=== PATIENT | male | born 1960 | race Caucasian/White ===

== ENCOUNTER 2018-09-03 11:46 | Observation (INO) ==
[2018-09-03 13:26] LABS: ALLEN TEST YES; BE 2.8 mmoll (-3.0-3.0); BLOOD TYPE ARTERIAL; HCO3-(ACT) 27.1 mmoll (20.0-26.0); METHB 1.1 % (0.0-1.5); O2(CT) 21.2 mL/dL (15.0-23.0); O2HB 96.6 % (95.0-99.0); PO2(98.6) 113 mmHg (60-100); SAMPLE BLOOD; SAO2 99.2 % (95.0-100.0); THB 15.5 g/dL (11.5-17.4)
[2018-09-03 13:27] LABS: pH(98.6) 7.65 (7.35-7.45)
[2018-09-03 13:28] LABS: MODALITY CANNULA; PCO2(98.6) 19 mmHg (35-45)
--- NOTE | 2018-09-03 13:30 | Diag Imaging Result Doc PS360 ---
EXAM: CT HEAD W/O CONTRAST INDICATION: syncope TECHNIQUE: This exam was performed using automated exposure control, adjustment of mA or kV according to patient size, and/or use of iterative reconstruction technique. COMPARISON: None. FINDINGS: There is no definite acute infarct given the limited sensitivity of CT versus MRI. There is no discrete intracranial mass, mass effect, or intracranial hemorrhage. The surrounding soft tissues and bony structures are essentially unremarkable. IMPRESSION: No evidence of acute intracranial pathology. Electronically signed by Vito Mac 09/03/2018 1:28 PM
--- NOTE | 2018-09-03 13:35 | Diag Imaging Result Doc PS360 ---
EXAM: FOOT COMPLETE LEFT INDICATION: injury TECHNIQUE: 3 views COMPARISON: None. FINDINGS: There are prominent calcaneal bone spurs. There is no discrete fracture, dislocation, or significant intrinsic osseous lesion, otherwise. There is soft tissue edema around the foot. IMPRESSION: Soft tissue edema but no evidence of acute osseous abnormality. Electronically signed by Vito Mac 09/03/2018 1:32 PM
[2018-09-03 13:37] LABS: BASO# 0.03 X1000 (0.0-0.2); BASO% 0.3 % (0.0-0.8); EOS# 0.05 X1000 (0.0-0.7); EOS% 0.4 % (0.0-10.0); HEMATOCRIT 43.6 % (42.0-52.0); HEMOGLOBIN 15.2 g/dL (14.0-18.0); IMM GRAN# 0.05 X1000 (0.0-0.04); IMM GRAN% 0.4 % (0.0-0.5); LYMPH# 1.46 X1000 (1.2-3.4); LYMPH% 12.6 % (20.5-51.1); MCH 30.6 PG (27-31); MCHC 34.9 g/dL (33-37); MCV 87.9 FL (81-99); MONO# 0.64 X1000 (0.11-0.59); MONO% 5.5 % (1.7-9.3); MPV 10.7 FL (7.4-10.4); NEUT# 9.37 X1000 (1.4-6.5); NEUT% 80.8 % (42.2-75.2); PLT 332 X1000 (130-400); RBC 4.96 XMIL (4.7-6.1); RDW 13.6 % (11.5-14.5)
--- NOTE | 2018-09-03 13:57 | Diag Imaging Result Doc PS360 ---
EXAM: ANKLE COMPLETE LEFT INDICATION: ankle injury TECHNIQUE: 3 views COMPARISON: None. FINDINGS: There are prominent calcaneal bone spurs and tiny bone spurs at the medial malleolus. There is no discrete fracture, dislocation, or significant intrinsic osseous lesion, otherwise. The ankle joint spaces appear to be preserved. There is soft tissue edema surrounding the foot and ankle. IMPRESSION: Soft tissue edema but no evidence of acute osseous abnormality. Electronically signed by Vito Mac 09/03/2018 1:55 PM
[2018-09-03 14:10] LABS: ALB/GLOB RATIO 1.1; ALBUMIN 3.9 g/dL (3.5-5.0); CALCIUM 9.5 mg/dL (8.8-10.2); CREATININE 1.3 mg/dL (0.7-1.2); POTASSIUM 4.1 mmol/L (3.5-5.1); TOTAL BILIRUBIN 0.8 mg/dL (0.20-1.00); TOTAL PROTEIN 7.4 g/dL (6.3-8.3)
--- NOTE | 2018-09-03 16:58 | PROVIDER DOCUMENTATION ---
This chart was entered by Kolton Koch Scribe, acting as scribe for Manav Sims MD. HPI-Neurological Disorder - General Chief Complaint: Syncope Stated Complaint: SYNCOPE Time Seen by Provider: 09/03/18 12:30 Source: patient Allergies/Adverse Reactions: Patient Allergies Allergy/AdvReac Type Severity Reaction Status Date / Time hydromorphone HCl * Allergy Severe ANAPHYLAXIS Verified 03/15/18 20:37 [From Dilaudid] iodine Allergy Severe ANAPHYLAXIS Verified 03/15/18 20:37 metronidazole [From Flagyl] Allergy Severe ANAPHYLAXIS Verified 03/15/18 20:37 Metronidazole HCl * Allergy Severe ANAPHYLAXIS Verified 03/15/18 20:37 [From Flagyl] Home Medications: Home Medication List Medication Instructions Recorded Confirmed Last Taken Type Furosemide [Lasix] 40 mg PO BID #0 tablet 10/03/14 03/15/18 10/14/14 Rx Glipizide 10 mg PO BID 03/15/18 03/16/18 Unknown History Apixaban [Eliquis] 5 mg PO BID #60 tab 03/20/18 Unknown Rx Digoxin [Lanoxin] 250 microgm PO DAILY #30 tab 03/20/18 Unknown Rx Diltiazem [Cardizem] 60 mg PO TID #90 tab 03/20/18 Unknown Rx Fluticasone 50 Mcg Nasal Basye 2 spray GENE DAILY #1 bottle 03/20/18 Unknown Rx [Flonase] Metoprolol Succinate E.r. [Toprol 50 mg PO BID #60 tab 03/20/18 Unknown Rx Xl] Spironolactone [Aldactone] 25 mg PO BID #60 tab 03/20/18 Unknown Rx - History of Present Illness-Neuro Nature of Presenting Problem: Pt is a 58 y/o M presents to the ED post syncope. He reports getting up from the bathroom, walking down the samano felt sweaty then passing out. He report his daughter was there and helped him to the floor. She reports he was out for about 15 seconds. He denies injury. He does complain of left foot/ankle pain for about 3 days after rolling his ankle in gravel. He says he has not been getting up out of the chair except to go the bathroom. He reports some SOB with exertion. Pt denies numbness and tingling in extremities. He reports a recent colonscopy where he has one large polyp that needs to removed surgically. Onset/Duration: reports: just prior to arrival Timing: reports: gone now Context: reports: other (syncope) Character of Altered Mental Status: reports: N/A Any recent trauma/injury?: reports: none New weakness or altered sensation location:: reports: none Associated Symptoms: reports: short of breath, trouble walking, other (syncope). denies: dizziness, confusion, fever/chills, numbness in legs/feet, tingling in legs/feet Similar Symptoms Previously?: No Recently seen or treated by another doctor?: No Review of Systems - Adult - REVIEW OF SYSTEMS - ADULT Constitutional: denies: chills, fever Eyes: reports: no symptoms reported Ears, Nose, Mouth & Throat: reports: no symptoms reported Cardiovascular: denies: chest pain, edema Respiratory: reports: no symptoms reported Gastrointestinal: denies: abdominal pain, nausea, vomiting Genitourinary: reports: no symptoms reported Musculoskeletal: reports: bone pain, joint pain Integumentary: reports: no symptoms reported Neurological: reports: syncope. denies: dizziness/vertigo, headache/migraines, numbness, slurred speech Psychiatric: reports: no symptoms reported Endocrine: reports: no symptoms reported Hematologic/Lymphatic: reports: no symptoms reported Allergic/Immunologic: reports: no symptoms reported All Other Systems: Reviewed and Negative Past History - Adult - PAST MEDICAL HISTORY-ADULT Review of Records: reports: Old Records Reviewed, Nursing Assessment Review, Me dications Reviewed Gastrointestinal: reports: diverticulosis Neurological: Psychiatric: reports: depression Other Conditions: reports: other (morbid obesity) - PRIOR SURGERIES/PROCEDURES Surgical/Procedure History: reports: tonsillectomy, orthopedic (extremity) - FAMILY HISTORY Family History: reviewed, not pertinent - SOCIAL HISTORY Smoking: non-smoker Substance Use: alcohol Alcohol Use Frequency: every day Living Situation: family Physical Exam- Neurological - Physical Exam-Neuro Initial Vital Signs Reviewed: Yes General Appearance: alert, no apparent distress, obese (morbid) HENMT: moist mucous membranes, normal ENT inspection Head Injury: no evidence of injury. negative: active bleeding Neck: non-tender, full range of motion, supple, normal inspection Respiratory: lungs clear, normal breath sounds, no pleuratic chest pain, no respiratory distress, no accessory muscle use Cardiovascular: normal peripheral pulses, regular rate, rhythm Abdominal Exam: normal bowel sounds, soft, hernia (hitial and umbical), other (well healed mid abdominal surgical scar) Extremity: normal range of motion, swelling, tenderness (left ankle and foot). 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 negative: aphasia Integumentary: normal color, normal turgor, warm/dry Psych/Mental Status: normal mood/affect, normal thought content, normal thought process, oriented x 3 Progress - PLAN OF CARE/RESULTS Progress/Plan/Lab Results: Vital Signs - 8 hr 09/03/18 12:21 Temperature 98.9 F Pulse Rate 95 H Respiratory Rate 20 Blood Pressure 127/82 O2 Sat by Pulse Oximetry 100 Laboratory Results - last 24 hr 09/03/18 09/03/18 09/03/18 12:32 12:32 12:32 WBC 11.60 H RBC 4.96 Hgb 15.2 Hct 43.6 MCV 87.9 MCH 30.6 MCHC 34.9 RDW Std Deviation 13.6 Plt Count 332 MPV 10.7 H Immature Gran % (Auto) 0.4 Neut % (Auto) 80.8 H Lymph % (Auto) 12.6 L Blanco % (Auto) 5.5 Eos % (Auto) 0.4 Baso % (Auto) 0.3 Immature Gran # (Auto) 0.05 H Neut # (Auto) 9.37 H Lymph # (Auto) 1.46 Blanco # (Auto) 0.64 H Eos # (Auto) 0.05 Baso # (Auto) 0.03 D-Dimer, Quantitative Specimen Type Sample Site pH pCO2 pO2 HCO3 Base Excess Oxyhemoglobin ABG O2 Sat (Calculated) ABG O2 Saturation ABG Carboxyhemoglobin ABG Methemoglobin Davian Test A-a O2 Difference Total Hemoglobin Lactate Liter Flow Blood Gas Modality FiO2 % Sodium 135 L Potassium 4.1 Chloride 97 L Carbon Dioxide 22 L Anion Gap 16 BUN 17 Creatinine 1.3 H Estimated GFR/1.73 m2 57 BUN/Creatinine Ratio 13 Glucose 168 H POC Glucose Calculated Osmolality 276 Calcium 9.5 Total Bilirubin 0.80 AST 9 L ALT 14 Alkaline Phosphatase 100 Troponin T < 0.010 [id number] Pept Total Protein 7.4 Albumin 3.9 Globulin 3.5 Albumin/Globulin Ratio 1.1 Urine Source Urine Color Urine Turbidity Urine pH Ur Specific [address] Urine Protein Ur Glucose (Stick) Ur Ketones (Stick) Urine Blood Urine Nitrite Urine Bilirubin Urobilinogen Dipstick Urine Leukocytes Urine WBC (Auto) Urine RBC (Auto) U Epithel Cells (Auto) Urine Bacteria (Auto) Urine Opiates Screen Ur Oxycodone Screen Ur Methadone, Qual Ur Barbiturates Screen Ur Phencyclidine Scrn Ur Amphetamines Screen U Benzodiazepines Scrn Urine Cocaine Screen U Cannabinoids Screen 09/03/18 09/03/18 09/03/18 12:32 12:32 13:17 WBC RBC Hgb Hct MCV MCH MCHC RDW Std Deviation Plt Count MPV Immature Gran % (Auto) Neut % (Auto) Lymph % (Auto) Blanco % (Auto) Eos % (Auto) Baso % (Auto) Immature Gran # (Auto) Neut # (Auto) Lymph # (Auto) Blanco # (Auto) Eos # (Auto) Baso # (Auto) D-Dimer, Quantitative 0.28 Specimen Type ARTERIAL Sample Site R RADIAL pH 7.65 H* pCO2 19 L* pO2 113 H HCO3 27.1 H Base Excess 2.8 Oxyhemoglobin 96.6 ABG O2 Sat (Calculated) 21.2 ABG O2 Saturation 99.2 ABG Carboxyhemoglobin 1.50 ABG Methemoglobin 1.1 Davian Test YES A-a O2 Difference 91.0 Total Hemoglobin 15.5 Lactate 1.80 Liter Flow 3.0 Blood Gas Modality CANNULA FiO2 % 32.0 Sodium Potassium Chloride Carbon Dioxide Anion Gap BUN Creatinine Estimated GFR/1.73 m2 BUN/Creatinine Ratio Glucose POC Glucose Calculated Osmolality Calcium Total Bilirubin AST ALT Alkaline Phosphatase Troponin T Hsu-R-Tbinatgvnzm Pept 1920 H Total Protein Albumin Globulin Albumin/Globulin Ratio Urine Source Urine Color Urine Turbidity Urine pH Ur Specific [address] Urine Protein Ur Glucose (Stick) Ur Ketones (Stick) Urine Blood Urine Nitrite Urine Bilirubin Urobilinogen Dipstick Urine Leukocytes Urine WBC (Auto) Urine RBC (Auto) U Epithel Cells (Auto) Urine Bacteria (Auto) Urine Opiates Screen Ur Oxycodone Screen Ur Methadone, Qual Ur Barbiturates Screen Ur Phencyclidine Scrn Ur Amphetamines Screen U Benzodiazepines Scrn Urine Cocaine Screen U Cannabinoids Screen 09/03/18 09/03/18 09/03/18 14:20 17:15 17:15 WBC RBC Hgb Hct MCV MCH MCHC RDW Std Deviation Plt Count MPV Immature Gran % (Auto) Neut % (Auto) Lymph % (Auto) Blanco % (Auto) Eos % (Auto) Baso % (Auto) Immature Gran # (Auto) Neut # (Auto) Lymph # (Auto) Blanco # (Auto) Eos # (Auto) Baso # (Auto) D-Dimer, Quantitative Specimen Type Sample Site pH pCO2 pO2 HCO3 Base Excess Oxyhemoglobin ABG O2 Sat (Calculated) ABG O2 Saturation ABG Carboxyhemoglobin ABG Methemoglobin Davian Test A-a O2 Difference Total Hemoglobin Lactate Liter Flow Blood Gas Modality FiO2 % Sodium Potassium Chloride Carbon Dioxide Anion Gap BUN Creatinine Estimated GFR/1.73 m2 BUN/Creatinine Ratio Glucose POC Glucose 163 H Calculated Osmolality Calcium Total Bilirubin AST ALT Alkaline Phosphatase Troponin T Ywb-[id number]-Vqdbksdnnng Pept Total Protein Albumin Globulin Albumin/Globulin Ratio Urine Source CLEAN CATCH Urine Color YELLOW Urine Turbidity CLEAR Urine pH 6.[address] 1.010 Urine Protein NEGATIVE Ur Glucose (Stick) NEGATIVE Ur Ketones (Stick) NEGATIVE Urine Blood NEGATIVE Urine Nitrite NEGATIVE Urine Bilirubin NEGATIVE Urobilinogen Dipstick NORMAL Urine Leukocytes NEGATIVE Urine WBC (Auto) <10 Urine RBC (Auto) <10 U Epithel Cells (Auto) <10 Urine Bacteria (Auto) NEGATIVE Urine Opiates Screen NONE DETECTED Ur Oxycodone Screen NONE DETECTED Ur Methadone, Qual NONE DETECTED Ur Barbiturates Screen NONE DETECTED Ur Phencyclidine Scrn NONE DETECTED Ur Amphetamines Screen NONE DETECTED U Benzodiazepines Scrn NONE DETECTED Urine Cocaine Screen NONE DETECTED U Cannabinoids Screen NONE DETECTED Orders Category Date Time Status Admit - [facility] Routine AdmDCTranf 09/03/18 17:48 Active Jose Antonio Wrap Application DIRECTED Care 09/03/18 14:59 Active Activity - Strict Bedrest ORDERED Care 09/03/18 17:48 Active Activity - Up with Assistance ORDERED Care 09/03/18 17:48 Active DVT/PE Risk Assess/Protocol [QM] ORDERED Care 09/03/18 17:48 Active Intake and Output-Strict ORDERED Care 09/03/18 17:48 Active Nursing- Obtain EKG ONCE Care 09/03/18 12:49 Active Vital Signs Order Q 4-HR ASSESS Care 09/03/18 17:49 Active Z-Document. for Tele Applied ORDERED Care 09/03/18 17:49 Active Heart Healthy Diet Diet 09/03/18 17:54 Active ANKLE COMPLETE LEFT [RAD] Stat Exams 09/03/18 12:48 Completed CHEST-PORTABLE [RAD] Routine Exams 09/04/18 06:[address] HEAD W/O CONTRAST [CT] Stat Exams 09/03/18 12:48 Completed FOOT COMPLETE LEFT [RAD] Stat Exams 09/03/18 12:48 Completed ABG [RESP] Routine Lab 09/03/18 13:17 Completed ABG [RESP] Routine Lab 09/04/18 06:00 Uncollected CBC WITH DIFF [HEME] Routine Lab 09/04/18 06:00 Uncollected CBC WITH ELECTRONIC DIFF [HEME] Stat Lab 09/03/18 12:32 Completed CK PROFILE [SP CHEM] Q8H Lab 09/03/18 17:53 Uncollected CK PROFILE [SP CHEM] Q8H Lab 09/04/18 01:53 Uncollected CK PROFILE [SP CHEM] Q8H Lab 09/04/18 09:53 Uncollected COMPREHENSIVE METABOLIC PANEL [CHEM] Routine Lab 09/04/18 06:00 Uncollected COMPREHENSIVE METABOLIC PANEL [CHEM] Stat Lab 09/03/18 12:32 Completed D-DIMER [COAG] Stat Lab 09/03/18 12:32 Completed MAGNESIUM [CHEM] Routine Lab 09/04/18 06:00 Uncollected PRO B-NATRIURETIC PEPTIDE Stat Lab 09/03/18 12:32 Completed PROTIME WITH INR [COAG] Routine Lab 09/04/18 06:00 Uncollected TROPONIN T Q8H Lab 09/03/18 17:48 Uncollected TROPONIN T Q8H Lab 09/04/18 01:48 Uncollected TROPONIN T Q8H Lab 09/04/18 09:48 Uncollected TROPONIN T Stat Lab 09/03/18 12:32 Completed TSH Routine Lab 09/04/18 06:00 Uncollected URINALYSIS [URINALYSIS] Stat Lab 09/03/18 17:15 Completed URINE DRUG SCREEN Stat Lab 09/03/18 17:15 Completed Acetaminophen [Tylenol] Med 09/03/18 17:48 Active 650 mg PO Q6H PRN PRN Enoxaparin [Lovenox] Med 09/03/18 21:00 Active 40 mg SUBQ Q24H Omeprazole [Prilosec] Med 09/04/18 07:00 Active 40 mg PO DAILY@0700 Ondansetron [Zofran] Med 09/03/18 17:48 Active 4 mg IV Q4H PRN PRN Telemetry [OM.EQ] Routine Oth 09/03/18 17:48 Active Carotid Ultrasound Routine Ther 09/04/18 07:00 Ordered EKG [EKG] Routine Ther 09/04/18 08:00 Ordered EKG [EKG] Stat Ther 09/03/18 12:49 Ordered Echo Spec/Color Doppler Routine Ther 09/04/18 07:00 Ordered Transfer/Admit Order [TRANSFER] Routine Transfer 09/03/18 17:55 Ordered At recheck pt noted that he has passed out x5 today. Result Diagrams: 09/03/18 12:32 09/03/18 12:32 - EKG 1 Time of EKG reading by physician:: 11:47 EKG Read and Signed by:: Manav Sims EKG Interpretation (*Must complete 3 of following elements*): Abnormal Rate: 96 Rhythm: A-fib with PVC or aberrantly donducted complexes Comments: nonspecific intraventricular conduction delay, Nonspecific ST abnormality 2 Time of EKG reading by physician:: 15:48 EKG Read and Signed by:: Manav Sims EKG Interpretation (*Must complete 3 of following elements*): Abnormal Rate: 98 Rhythm: A-fib wit OVC or aberrantly condecuted complexes Comments: non-specific ST and T wave abnormality - XRAY 1 XRAY: Left XRAY Study: Foot Impression: Abnormal (EXAM: FOOT COMPLETE LEFT INDICATION: injury TECHNIQUE: 3 views COMPARISON: None. FINDINGS: There are prominent calcaneal bone spurs. There is no discrete fracture, dislocation, or significant intrinsic osseous lesion, otherwise. There is soft tissue edema around the foot. IMPRESSION: Soft tissue edema but no evidence of acute osseous abnormality. Electronically signed by Vito Mac 09/03/2018 1:32 PM) 2 XRAY: Left XRAY Study: Ankle Impression: Abnormal (EXAM: ANKLE COMPLETE LEFT INDICATION: ankle injury TECHNIQUE: 3 views COMPARISON: None. FINDINGS: There are prominent calcaneal bone spurs and tiny bone spurs at the medial malleolus. There is no discrete fracture, dislocation, or significant intrinsic osseous lesion, otherwise. The ankle joint spaces appear to be preserved. There is soft tissue edema surrounding the foot and ankle. IMPRESSION: Soft tissue edema but no evide nce of acute osseous abnormality. Electronically signed by Vito Mac 09/03/2018 1:55 PM) - CT/MRI 1 CT Study: Head Impression: Normal (EXAM: CT HEAD W/O CONTRAST INDICATION: syncope TECHNIQUE: This exam was performed using automated exposure control, adjustment of mA or kV according to patient size, and/or use of iterative reconstruction technique. COMPARISON: None. FINDINGS: There is no definite acute infarct given the limited sensitivity of CT versus MRI. There is no discrete intracranial mass, mass effect, or intracranial hemorrhage. The surrounding soft tissues and bony structures are essentially unremarkable. IMPRESSION: No evidence of acute intracranial pathology. Electronically signed by Vito Mac 09/03/2018 1:28 PM) - CONSULTS/PCP/HOSPITALIST Notification #1 *Consult/PCP/Hospitalist*: [employer] TE[employer] for Hospitalist. Time Discussed: 16:54 Consult Disposition: Will see in ED, Admit Departure - Departure Date of Disposition Decision: 09/03/18 Time of Disposition Decision: 16:54 DIAGNOSIS: A-fib, Syncope and collapse, Renal insufficiency, Ankle sprain, SOB (shortness of breath), CHF (congestive heart failure) Disposition: ADMITTED INPATIENT 09 Certified Medical Emergency: Emergent Condition: Fair Referrals and Follow-Ups: Eric Heath MD [Primary Care Provider] - - Critical Care Note This patient required my direct & personal management of CC.: No Attestation - Physician/ ISH Attestation Patient care was provided by Advanced Practice Provider:: No The physician spent face to face time with patient:: Yes Advanced Practice Provider documentation review:: Supervising physician onsite and consulted in the evaluation and care of this patient. The physician did have a face to face encounter with the patient. This chart was documented by the indicated scribe, (Kolton Koch Scribe) and accurately reflects the services I performed and decisions made by me, Manav Sims MD, as attested by the provider's signature.
[2018-09-03 17:22] LABS: URINE SOURCE CLEAN CATCH
[2018-09-03 17:26] LABS: BILIRUBIN URINE NEGATIVE (NEGATIVE); BLOOD URINE NEGATIVE (NEGATIVE); COLOR YELLOW; GLUCOSE URINE NEGATIVE (NEGATIVE); KETONE URINE NEGATIVE (NEGATIVE); LEUKOCYTES URINE NEGATIVE (NEGATIVE); NITRITE URINE NEGATIVE (NEGATIVE); PH URINE 6.5; PROTEIN URINE NEGATIVE (NEGATIVE); TURBIDITY URINE CLEAR (CLEAR); UROBILINOGEN URINE NORMAL (NORMAL)
[2018-09-03 17:27] LABS: UR EPITHELIAL CELLS <10 /HPF (<10); URINE BACTERIA NEGATIVE /HPF; URINE RBC <10 /HPF (<10); URINE WBC <10 /HPF (<10)
[2018-09-03 17:37] LABS: UR AMPHETAMINES QUAL NONE DETECTED (NONE DETECT); UR BARBITUATES QUAL NONE DETECTED (NONE DETECT); UR BENZODIAZEPIN QUAL NONE DETECTED (NONE DETECT); UR CANNABINOIDS QUAL NONE DETECTED (NONE DETECT); UR COCAINE QUAL NONE DETECTED (NONE DETECT); UR METHADONE QUAL NONE DETECTED (NONE DETECT); UR OPIATES QUAL NONE DETECTED (NONE DETECT); UR OXYCODONE QUAL NONE DETECTED (NONE DETECT); UR PCP QUAL NONE DETECTED (NONE DETECT)
[2018-09-03] MEDS ORDERED: ZOFRAN IV PRN (17:48)
[2018-09-03] MEDS ORDERED: TYLENOL PO PRN (17:48)
--- NOTE | 2018-09-03 19:29 | Diag Imaging Result Doc PS360 ---
EXAM: CHEST-PORTABLE INDICATION: dyspnea TECHNIQUE: One view COMPARISON: 03/16/2018 FINDINGS: The lungs are grossly clear. There is no discrete pleural fluid collection or pneumothorax. Cardiac silhouette is mildly prominent but stable. Central vasculature is also prominent suggesting mild pulmonary venous congestion. IMPRESSION: Suggestion of mild pulmonary venous congestion. Electronically signed by Vito Mac 09/03/2018 7:27 PM
[2018-09-03] MEDS ORDERED: CLINDAMYCIN 300 MG in NS 50 ML IV ONE (20:00)
--- NOTE | 2018-09-03 20:14 | HISTORY AND PHYSICAL ---
PRIMARY CARE: Dr. Heath. CONSULTING DOCTORS: [facility]. I am admitting this patient for Dr. Torsten Gomes. CHIEF COMPLAINT: Syncope. HISTORY OF PRESENT ILLNESS: This is a 58-year-old male who is obese, lying in the ER stretcher in somewhat mild distress at the present time. States that he is having left foot pain where he fell 3 days ago and hurt his foot. The patient states today he was at home. He was standing up. He became very hot and dizzy and then became unconscious. His daughter was there with him. The patient did not fall. The daughter brought him down to the floor without him actually falling. The patient states he was unconscious for greater than 45 minutes or where he was in and out of consciousness. The patient was brought to the ER. This was about 11:30 this morning. The patient is now awake and alert. Able to answer all questions appropriately. The patient is somewhat in a little bit of mild distress or exertion when talking. Respiratory rate is in the 20s, O2 saturation is 99% on 3 L nasal cannula. Heart rate is noted to be in the 80s to 90s, atrial fibrillation flutter. The patient states this is chronic for him. Blood pressure is stable. The patient denies any chest pain at this time. He denies any dizziness. He denies any nausea. States that he is not feeling faint at present time. Denies any fever or chills. States that he does have a cough, but this is chronic. He does not have any sputum production with this cough. The patient denies any abdominal pain or chest pain. The patient does have what looks like peripheral artery disease to the bilateral lower extremities. The patient states he has had some venous stasis ulcers in the past to the left leg. He used to wear Unna boots on his legs. The patient does have edema noted to the left foot area. A foot x-ray was done and showed some soft tissue edema, but no evidence of acute osseus abnormality. An ankle x-ray was also done and it showed soft tissue edema, but no acute evidence of abnormality. Head CT was also performed in the ER and showed no evidence of acute intracranial pathology. LABORATORY FINDINGS: Do show white blood cell count elevation of 11.6. ABGs were done on admission on patient and it did show a pH of 7.65, a CO2 of 19, and O2 of 113 and a bicarb of 27.1. Oxyhemoglobin was 96.6. This was on 3 L nasal cannula. Sodium was 135, potassium was normal at 4.1, BUN is 17, creatinine is 1.3. ProBNP was 1920 in the ER. Urinalysis was negative in the ER. Drug toxicology was done and was negative. PAST MEDICAL HISTORY: The patient states in February, he had some type of viral illness and was admitted to the hospital. He came to the hospital and he was admitted with atrial fibrillation, RVR at that time. The patient was subsequently started on cardiac medications and Eliquis. He has also had a colonoscopy which showed a polyp that needs to be surgically removed, but the patient is unable to have surgery at this time due to his heart condition. He has a hernia x2. He has got diverticulitis. He is morbidly obese. He has hypertension, diabetes, hyperlipidemia, congestive heart failure, peripheral artery disease, venous stasis ulcers. PAST SURGICAL HISTORY: Colonoscopy, diverticular valve resection, sinus surgery, elbow surgery, wrist surgery, 2 knee surgeries, neck surgery and a couple back surgeries. FAMILY HISTORY: Father of an [place]. Mother is still living. She has had a history of cancer, diabetes, and TIA's. The patient also had a brother that from [place]. SOCIAL HISTORY: Patient lives with his in [place]. Denies any drug or alcohol abuse. States that he does chew tobacco about 3 to 4 cans a week. ALLERGIES: Flagyl, iodine, and Dilaudid. MEDICATIONS: 1. Furosemide 40 mg p.o. daily. 2. Eliquis 5 mg p.o. daily. 3. Digoxin 250 mcg p.o. daily. 4. Cardizem 60 mg p.o. daily. 5. Fluticasone nasal spray 122 sprays per bottle 1 spray to bilateral nares once daily. 6. Glipizide 2 mg p.o. daily. 7. Metoprolol 50 mg p.o. daily. 8. Spironolactone 25 mg p.o. daily. LABS AND DIAGNOSTICS: White blood cell count 11.60, hemoglobin 15.2, hematocrit 43.6, platelet count 332,000. D-dimer was negative at 0.28, pH 7.65, CO2 19, PO2 is 113, bicarb is 27.1, oxyhemoglobin is 96.6. This is on 3 L nasal cannula. Plasma lactate is 1.80. Sodium 135, potassium 4.1, chloride 97, carbon dioxide 22, BUN 17, creatinine 1.3. GFR 57. Glucose was 168, calcium 9.5, total bilirubin is 0.9, AST 9, ALT is 14, alkaline phosphatase 100, troponin less than 0.01. ProBNP is 1920. Urinalysis is negative. Urine toxicology is negative. Head CT done on 09/03 shows no evidence of acute intracranial pathology. Left foot x-ray done on 09/03 shows soft tissue edema, but no evidence of acute osseous abnormality. Ankle x-ray done on 09/03 shows soft tissue edema, but no evidence of acute osseous abnormality. REVIEW OF SYSTEMS: A 12-point review of system was complete. All are negative, except for that stated in the HPI. PHYSICAL EXAM: VITAL SIGNS: Temperature 98.9 degrees, pulse rate 95, respiratory rate is 20, blood pressure is 127/82, O2 saturation is 99% on 3 L nasal cannula. GENERAL: This is a 58-year-old male who is lying in the ER stretcher in somewhat mild distress when talking to me. His respiratory rate is around 20. He is able answer all questions appropriately. HEENT: Atraumatic, normocephalic. Pupils equal, round, reactive to light. Mucous membranes are moist. No dentition. NECK: Supple. No lymphadenopathy. Trachea is midline. No JVD. CV: No murmur or gallop or rub. Heart rate is atrial fibrillation on the monitor. S1, S2 noted. RESPIRATORY: Lung sounds are diminished with equal chest expansion. The patient is tachypneic with a little dyspnea noted when talking to me. No accessory muscle use. GI: Abdomen is large and soft, nondistended. Bowel sounds are present. There is a hernia noted to mid abdomen. : Patient is voiding clear yellow urine. No difficulty noted. NEURO: Patient is awake, alert, oriented. Cranial nerves intact. No focal deficits. MUSCULOSKELETAL: Full strength noted. No deformities. The patient does have swelling noted to the left foot area. The patient states it is painful to touch. EXTREMITIES: No clubbing or cyanosis. There is discoloration noted to the bilateral lower limbs. The left foot has redness and edema noted to the top of the foot. There is some redness noted to the left felix area. The right leg, the skin is darkened. No edema noted to the right leg. DP and PT pulses are present. SKIN: Left lower foot is warm and edematous. Felix has a reddened area to the left lower leg. Right lower leg is dark and discolored skin noted. All skin intact. ASSESSMENT: 1. Syncopal episode. 2. Congestive heart failure. 3. Hypertension. 4. Diabetes. 5. Hyperlipidemia. 6. Venous stasis. 7. Left ankle sprain, possible cellulitis. PLAN: We will admit this patient to the medical floor. We will follow serial CK and troponin levels. Repeat EKG in the morning. We will do a carotid ultrasound in the morning and echo in the morning. Place the patient on telemetry. Place the patient on bed rest. The patient is on oxygen. We will continue pulmonary toilet. We will obtain labs in the morning. Restart home medications except for diuretics. Check the patient's A1c, thyroid. We will do a chest x-ray now and repeat it in the morning. We will give the patient clindamycin for possible cellulitis to the left foot and give the patient more pain medication for this foot injury. Dictated by YOLANDA Guzman for Berry Gomes MD
[2018-09-03] MEDS: NORCO-7.5 PO PRN (20:28)
[2018-09-03] MEDS: HUMULIN R SUBQ SCH (21:00)
[2018-09-03] MEDS ORDERED: GLUCOTROL PO SCH (21:00)
[2018-09-03] MEDS ORDERED: LOVENOX SUBQ SCH (21:00)
[2018-09-03] MEDS: TOPROL XL PO SCH ×2 (21:00→21:56)
[2018-09-03] MEDS: ELIQUIS PO SCH (21:56)
[2018-09-03] MEDS: ALDACTONE PO SCH (21:57)
[2018-09-03] MEDS: GLUCOTROL PO SCH (21:57)
[2018-09-04] MEDS: NORCO-7.5 PO PRN ×4 (02:25→21:47)
[2018-09-04 05:02] LABS: ALLEN TEST YES; BE 0.5 mmoll (-3.0-3.0); BLOOD TYPE ARTERIAL; HCO3-(ACT) 25.3 mmoll (20.0-26.0); METHB 1.2 % (0.0-1.5); O2(CT) 19.5 mL/dL (15.0-23.0); O2HB 95.5 % (95.0-99.0); PCO2(98.6) 37 mmHg (35-45); PO2(98.6) 96 mmHg (60-100); SAMPLE BLOOD; SAO2 98.6 % (95.0-100.0); THB 14.5 g/dL (11.5-17.4); pH(98.6) 7.43 (7.35-7.45)
[2018-09-04 05:04] LABS: MODALITY ROOM AIR
[2018-09-04] MEDS: CLINDAMYCIN 300 MG in NS 50 ML IV SCH ×3 (05:08→21:47)
[2018-09-04] MEDS: PRILOSEC PO SCH (06:13)
[2018-09-04] MEDS: HUMULIN R SUBQ SCH ×5 (06:13→20:39)
[2018-09-04 07:23] LABS: BASO# 0.05 X1000 (0.0-0.2); BASO% 0.6 % (0.0-0.8); EOS% 1.2 % (0.0-10.0); HEMATOCRIT 42.1 % (42.0-52.0); HEMOGLOBIN 14.2 g/dL (14.0-18.0); IMM GRAN# 0.02 X1000 (0.0-0.04); IMM GRAN% 0.2 % (0.0-0.5); LYMPH# 1.74 X1000 (1.2-3.4); LYMPH% 21.5 % (20.5-51.1); MCH 30.1 PG (27-31); MCHC 33.7 g/dL (33-37); MCV 89.4 FL (81-99); MONO# 0.62 X1000 (0.11-0.59); MONO% 7.7 % (1.7-9.3); MPV 10.3 FL (7.4-10.4); NEUT# 5.56 X1000 (1.4-6.5); NEUT% 68.8 % (42.2-75.2); PLT 299 X1000 (130-400); RBC 4.71 XMIL (4.7-6.1); RDW 13.7 % (11.5-14.5); WBC 8.09 X1000 (4.8-10.8)
--- NOTE | 2018-09-04 07:23 | EKG Report ---
Test Performed on : 09/04/2018 07:15:26 AM Test Reason : syncope Blood Pressure : / mmHG Vent. Rate : 093 BPM Atrial Rate : 250 BPM P-R Int : 000 ms QRS Dur : 118 ms QT Int : 392 ms P-R-T Axes : 000 026 -62 degrees QTc Int : 487 ms Atrial fibrillation. with premature ventricular or aberrantly conducted complexes. Nonspecific intraventricular conduction delay ST depression, consider subendocardial injury Abnormal QRS-T angle, consider primary T wave abnormality Prolonged QT Abnormal ECG When compared with ECG of 03-SEP-2018 15:48, (Unconfirmed) T wave inversion now evident in Anterior leads Confirmed by Faisal GALAVIZ, Davian Astudillo ([id number]) on 09/05/2018 10:01:24 AM
[2018-09-04 07:25] LABS: INR 1.12; PROTIME 15.3 Seconds (11.0-16.0)
--- NOTE | 2018-09-04 07:38 | Diag Imaging Result Doc PS360 ---
EXAM: CHEST-PORTABLE INDICATION: syncope TECHNIQUE: One view COMPARISON: 09/03/2018 FINDINGS: The lungs are grossly clear. No new consolidation is identified. Cardiac silhouette is mildly prominent but stable. IMPRESSION: Stable chest. Electronically signed by Vito Mac 09/04/2018 7:35 AM
[2018-09-04 07:43] LABS: HEMOGLOBIN A1C 7.8 % (4.8-6.0)
[2018-09-04 07:46] LABS: AGAP 12; ALB/GLOB RATIO 1.2; ALBUMIN 3.7 g/dL (3.5-5.0); ALKALINE PHOSPHATASE 95 U/L (32-122); BUN 19 mg/dL (8-22); CALCIUM 9.2 mg/dL (8.8-10.2); CHLORIDE 103 mmol/L (98-107); COSMO 283; CREATININE 1.2 mg/dL (0.7-1.2); ESTIMATED GFR > 60; GLUCOSE 162 mg/dL (70-104); GOT 8 U/L (10-34); GPT 11 U/L (10-44); MAGNESIUM 2.2 mg/dL (1.5-2.7); SODIUM 139 mmol/L (136-145); TCO2 24 mmol/L (25-35); TOTAL BILIRUBIN 0.52 mg/dL (0.20-1.00); TOTAL PROTEIN 6.9 g/dL (6.3-8.3)
--- NOTE | 2018-09-04 08:00 | EKG Report ---
Test Performed on : 09/03/2018 11:47:02 AM Test Reason : syncope Blood Pressure : / mmHG Vent. Rate : 096 BPM Atrial Rate : 214 BPM P-R Int : 000 ms QRS Dur : 120 ms QT Int : 356 ms P-R-T Axes : 000 011 -09 degrees QTc Int : 449 ms Atrial fibrillation. with premature ventricular or aberrantly conducted complexes. Nonspecific intraventricular conduction delay Nonspecific ST abnormality Abnormal ECG When compared with ECG of 20-MAR-2018 12:06, T wave inversion no longer evident in Anterior leads Unconfirmed Result
--- NOTE | 2018-09-04 08:45 | EKG Report ---
Test Performed on : 09/03/2018 3:48:50 PM Test Reason : syncope Blood Pressure : / mmHG Vent. Rate : 098 BPM Atrial Rate : 340 BPM P-R Int : 000 ms QRS Dur : 112 ms QT Int : 368 ms P-R-T Axes : 000 009 -72 degrees QTc Int : 469 ms Atrial fibrillation. with premature ventricular or aberrantly conducted complexes. Nonspecific ST and T wave abnormality Abnormal ECG When compared with ECG of 03-SEP-2018 11:47, (Unconfirmed) No significant change was found Unconfirmed Result
[2018-09-04] MEDS: ALDACTONE PO SCH ×2 (09:11→20:37)
[2018-09-04] MEDS: ELIQUIS PO SCH ×2 (09:12→20:37)
[2018-09-04] MEDS: GLUCOTROL PO SCH ×2 (09:12→20:36)
[2018-09-04] MEDS: FLONASE NAS SCH (09:12)
[2018-09-04] MEDS: LANOXIN PO SCH (09:12)
[2018-09-04] MEDS: CARDIZEM PO SCH ×3 (09:12→17:50)
[2018-09-04] MEDS: TOPROL XL PO SCH ×2 (09:12→20:37)
--- NOTE | 2018-09-04 13:27 | ECHO REPORT ---
ORDER DATE: 09/04/2018 INDICATIONS: Syncope. FINDINGS: 1. The right atrium was difficult to visualize. 2. Mild tricuspid regurgitation. The RV systolic pressure is 41. 3. Probable normal RV systolic function but extremely difficult right ventricular views. 4. No significant pulmonic insufficiency. 5. Mild left atrial enlargement with a dimension of 4.5 cm. 6. No mitral valve prolapse. Trace mitral regurgitation. 7. Normal LV size with an end-diastolic dimension of 5.4. Normal wall thicknesses with a posterior and interventricular septal wall thickness of 1.1 cm each. Definity echo contrast was used to help visualize the endocardial borders. The patient appears to have normal LV systolic function with an estimated EF greater than 55%. The patient's body habitus weighing greater than 400 pounds made this study difficult. 8. Aortic valve opens well. It is trileaflet. No evidence of stenosis or insufficiency. 9. Aorta appears dilated at the root with a dimension of 4.4 cm. 10. No pericardial effusion identified. cc: Junior Medina MD
--- NOTE | 2018-09-04 14:33 | PROGRESS NOTE ---
DATE: 09/04/2018 INTERVAL HISTORY: The patient still with difficulty walking in the left foot, but some decreased pain and swelling. No significant events on telemetry. Remains in atrial fibrillation but rate controlled. Discussed with Cardiology and they plan on setting up the patient for event monitor. Obtaining echo. No new complaints. No acute events overnight. He was able to get up some with physical therapy but the patient requesting crutches for use at home. REVIEW OF SYSTEMS: A 12-point review of systems negative except as per interval history. LABORATORY DATA: WBC 8.0, hemoglobin 14.2, hematocrit 42.1, platelets 299,000. ABG with pH 7.43, pCO2 37, PO2 90 on room air. Sodium 139, potassium 4, bicarb 24, BUN 19, creatinine 1.2, glucose 133. LFTs within normal limits. Troponin negative x3. TSH 6.1, free T4 pending. IMAGING: Chest x-ray with no acute process. OBJECTIVE: Vital Signs: T-max 98.9 degrees, pulse 88, blood pressure 123/70, O2 saturation 97% on room air. General: No acute distress. HEENT: Normocephalic, atraumatic. Mucous membranes moist. No cervical adenopathy. Cardiovascular: Irregular rhythm but normal rate. No murmurs noted. Pulmonary: Clear to auscultation bilaterally. Slightly increased respiratory rate, but no accessory muscle use or increased work of breathing. Does become mildly short of breath with conversation. Abdomen: Soft, nontender, nondistended. Nonincarcerated hernia midline and stable. Extremities: Peripheral pulses decreased but present. Chronic venous stasis changes bilaterally, worst on the anterior shins. Left foot erythema and warmth significantly improved from previous. Still significantly swollen. Some tenderness along the top and along the mid arch. No joint laxity noted. Neurologic: Cranial nerves grossly intact. No focal deficits identified. Psychiatric: Normal mood and affect. Awake, alert, oriented x3. Skin: Left dorsal foot erythema and warmth, improving as above. No new rashes or lesions noted. ASSESSMENT AND PLAN: 1. Syncopal episode of unclear etiology, but concern for cardiac arrhythmia. Nothing noted on telemetry here. Patient echocardiogram pending. Cardiology planning on setting up event monitor as soon as the patient leaves the hospital. 2. Left foot cellulitis. Patient presented with warmth and erythema of the left dorsal foot. Placed on clindamycin and appears to be improving. Continue IV antibiotics 1 more day but can likely transition to p.o. tomorrow. 3. Left ankle sprain. The patient reports he originally injured it a few weeks ago but has occasionally been re-injuring it since. No joint laxity. No fracture evident on x-ray. The patient requesting crutches, which we will attempt to get for him. Advised patient that if symptoms continue, he may eventually need Orthopedic evaluation. 4. Chronic systolic congestive heart failure. Last known ejection fraction of 35 to 40. Repeat echo pending. No signs of gross volume overload at this time. Monitor. 5. Hypertension, good control on current regimen, monitor. 6. Diabetes. Good glucose control on current sliding scale. Monitor. 7. Mildly elevated TSH. Free T4 pending. Will decide if any intervention is needed after seeing free T4. 8. Hyperlipidemia. Continue statin. 9. Chronic venous stasis of lower extremities. 10. Morbid obesity. Patient counseled on diet and exercise. [facility]
--- NOTE | 2018-09-04 16:36 | CARDIOLOGY CONSULTATION ---
DATE: 09/04/2018 CHIEF COMPLAINT ON PRESENTATION: Syncope. HISTORY OF PRESENT ILLNESS: Mr. Jackson is a 58-year-old morbidly obese white male with a history of hypertension, diabetes, chronic atrial fibrillation. He presents for evaluation of syncope. This most recent episode occurred yesterday during the afternoon. He had apparently been in bed for some time periods since when he injured his ankle in the driveway. It was very painful, and thus, he was essentially staying bed-bound for the last couple of days with the exception of going to the restroom. He had tried to get out of bed to go to the restroom and became quite lightheaded. He called out and a daughter or was able to make it to his help and aided him into a chair. He then continued to become quite lightheaded and eventually was helped to the floor. The patient apparently had a syncopal episode. He is not exactly sure how long this went on for, but at some point, for more than 45 minutes or so, it sounds like he had repetitive episodes of needing to be roused. The patient did not have any overt heart racing or fluttering. He denied any chest pain. There was no bowel or bladder incontinence. He eventually made it to the ER, where his initial blood pressure was 167/150. His initial heart rate on presentation was 73 beats per minute. Since that time, he has had orthostatics vital signs, but this is unfortunately after he has been in the hospital for a while. He had a supine heart rate of 103 and a blood pressure 152/86. Standing his heart rate actually dropped, but his blood pressure also dropped to 126/97. PAST MEDICAL HISTORY: 1. He is normally a patient of Dr. Burns. He last saw me in clinic in August 24. He has a history of chronic atrial fibrillation maintained on Eliquis. 2. Diastolic heart failure. 3. Morbid obesity. 4. Hypertension. 5. Diabetes. 6. Obstructive sleep apnea. SOCIAL HISTORY: He is , and his is at the bedside. No alcohol or drug abuse. He uses smokeless tobacco. FAMILY HISTORY: Father of an [place]. Mother still living. She has apparent history of some sort of cancer as well as diabetes. REVIEW OF SYSTEMS: A 10 system review of systems is negative except for those things mentioned in HPI. PHYSICAL EXAMINATION: Vital Signs: He is afebrile, his heart rate is 54, his blood pressure is 152/86. Generally, he is in no acute distress. Cardiovascularly, he sounds to be in an irregularly irregular rate and rhythm. He has minimal bilateral lower extremity edema. His chest sounds clear, but very distant to auscultation bilaterally. He has no increased work of breathing. His abdomen is soft, nontender. He has an umbilical hernia as well as a large ventral hernia just above that is nontender and easily reducible. His skin exam is warm and dry throughout without any rashes. Neurologically he is moving all extremities well. He has no lateralizing deficits. Psychiatric: He sounds alert and oriented, pleasant, normal mood and affect. PERTINENT DATA: He had a chest x-ray that showed suggestion of mild pulmonary venous congestion. His head CT shows no evidence of any acute abnormalities. His initial EKG reviewed by me occurring on the at 11:47 shows atrial fibrillation with occasional PVCs. His subsequent EKG occurring on the at 1548 shows atrial fibrillation, again PVCs identified, and his final EKG shows atrial fibrillation on the at 7:15 a.m., PVCs identified. His laboratory data shows a white count of 8, hematocrit of 42, platelet count 299,000. His ABG was reviewed. His sodium is 139, potassium 4, BUN 19 creatinine is 1.2. His cardiac enzymes are negative. His proBNP is 1920. ASSESSMENT: Mr. Jackson is a 58-year-old gentleman who presented with an episode of syncope. PLAN: He has chronic atrial fibrillation. The patient reports very little oral intake over the last couple of days as he did not want to have to get up to go to the restroom with his hurt ankle. He continued to take his diuretics. My initial thought is perhaps he is a little bit dehydrated which resulted in a blood pressure drop when he stood up. His echocardiogram reviewed by me does not show any rhythm abnormalities to suggest an etiology of his syncopal episodes. We have made arrangements for an outpatient FAVIOLA to have him wear to evaluate for possible arrhythmias. At this point, I do not have any acute cardiovascular reasons for the patient to remain an inpatient, and he would be suitable for discharge if okay with the primary team. He does have evidence for a blood pressure drop upon standing based on his recent orthostatics, although his heart rate did not reflect that. Could consider a slight fluid challenge or possibly just holding his diuretics for a day or 2. cc: Junior Medina MD MTDD
[2018-09-05] MEDS: NORCO-7.5 PO PRN ×2 (04:33→11:15)
[2018-09-05] MEDS: CLINDAMYCIN 300 MG in NS 50 ML IV SCH ×2 (04:34→11:15)
[2018-09-05] MEDS: HUMULIN R SUBQ SCH ×2 (06:22→11:16)
[2018-09-05] MEDS: PRILOSEC PO SCH (06:22)
[2018-09-05 08:17] VITALS: BP 139/66
[2018-09-05] MEDS: CARDIZEM PO SCH ×2 (08:59→13:03)
[2018-09-05] MEDS: LANOXIN PO SCH (08:59)
[2018-09-05] MEDS: TOPROL XL PO SCH (08:59)
[2018-09-05] MEDS: GLUCOTROL PO SCH (09:00)
[2018-09-05] MEDS: ALDACTONE PO SCH (09:00)
[2018-09-05] MEDS: ELIQUIS PO SCH (09:00)
[2018-09-05] MEDS: FLONASE NAS SCH (09:01)
--- NOTE | 2018-09-05 13:01 | Carotid Study ---
DATE: 09/04/2018 PROCEDURE: Bilateral carotid ultrasound study. REQUESTING PHYSICIAN: Audra Sims MD. INTERPRETING PHYSICIAN: Lewis Weller MD. TECH: [place]. INDICATIONS: Syncope. EQUIPMENT: LP33.[id number] E9 ultrasound system with a 9LD transducer. OBSERVED DATA RIGHT LEFT Brachial Blood Pressure Carotid Pulse Bruits: Carotid/Sub DIAGRAM OF ULTRASOUND IMAGING R L RIGHT INT EXT INT EXT LEFT Joey (cm/s) Joey (cm/s) Subclavian 85/1 Subclavian 105/3 CCA Proximal 97/9 CCA Proximal 101/18 CCA Distal 72/13 CCA Distal 70/18 Bulb 81/11 Bulb 75/15 ICA Proximal 76/23 ICA Proximal 60/16 ICA Mid 70/22 ICA Mid 76/30 ICA Distal 51/16 ICA Distal 89/33 ECA 98/10 ECA 103/7 Vertebral 47/10 A Vertebral 40/10 A ICA/CCA Ratio 0.79 ICA/CCA Ratio 0.82 % Stenosis 0-39% % Stenosis 0-39% FINDINGS: Minimal atherosclerosis, which at this time does not produce a hemodynamically significant flow-limiting stenosis. Both vertebral arteries are antegrade flow. PHYSICIAN INTERPRETATION: By strict velocity criteria, no hemodynamically significant flow- limiting stenosis. cc: Lewis Weller MD
--- NOTE | 2018-09-05 14:13 | CARDIOLOGY PROGRESS NOTE ---
DATE: 09/05/2018 SUBJECTIVE: Mr. Jackson feels better today. He has not had any lightheaded spells overnight. PHYSICAL EXAMINATION: Afebrile, heart rate 65, blood pressure 139/66. General: No acute distress. Cardiovascular: He sounds to be in an irregularly irregular rhythm, which is consistent with his chronic atrial fibrillation. He has minimal bilateral lower extremity edema. Chest Examination: Clear. No increased work of breathing. His abdomen is soft. PERTINENT DATA: No laboratory data from today. He had an echocardiogram yesterday that showed a preserved ejection fraction, a somewhat dilated aorta, but a difficult exam. ASSESSMENT: Mr. Jackson is a 58-year-old gentleman who presented with syncope. PLAN: His echocardiogram does not clearly demonstrate any etiology to this. Most likely, it was related to decreased oral intake and continued use of his diuretics. His vital signs yesterday did suggest a component of volume depletion based on his blood pressure drop with standing. He has a FAVIOLA ordered as an outpatient. He will follow up with Dr. Burns regarding this in the future. cc: Junior Medina MD [facility]
--- NOTE | 2018-09-06 05:09 | DISCHARGE SUMMARY ---
ADMISSION DATE: 09/03/2018 DISCHARGE DATE: 09/05/2018 DISCHARGE DIAGNOSES: 1. Syncope, likely due to dehydration and orthostatic hypotension. 2. Left foot cellulitis. 3. Left ankle sprain. 4. Chronic systolic congestive heart failure, no symptoms. 5. Hypertension. 6. Diabetes. 7. Hyperlipidemia. 8. Chronic venous disease of the lower extremities. 9. Morbid obesity. PROCEDURE PERFORMED: 1. Ankle x-ray dated 09/03/2018. Impression: Soft tissue edema but no evidence of acute osseous abnormality. 2. Foot x-ray dated 09/03/2018. Impression: Left side, soft tissue edema but no evidence of acute osseous abnormality. 3. Head CT dated 09/03/2018. Impression: No evidence of acute intracranial abnormality. 4. Chest x-ray dated 09/03/2018. Impression: Mild pulmonary venous congestion. 5. Chest x-ray dated 08/31/2018. Impression: Stable chest. CONSULTS: Cardiology Department, Dr. Junior Medina. HOSPITAL COURSE: A 58-year-old male, with multiple comorbidities, including diastolic heart failure, morbid obesity, hypertension, diabetes, obstructive sleep apnea, chronic atrial fibrillation on Eliquis, presented to the emergency department with left foot pain where he fell 3 days ago and hurt his foot. The day of admission on 09/03/2018, he was at home and he tried to stand up and became very hot and dizzy, and then he became unconscious. His daughter was there with him and the patient did not fall. The daughter brought him down to the floor without him actually falling. As per the patient, he was unconscious for more than 45 minutes or so. At the moment of the exam in the emergency department by the admitting team, he was awake and alert, and he was answering all the questions appropriately. The patient is somewhat a little bit of mild distress on exertion when talking. He is on oxygen. Atrial fibrillation which is chronic for him, so he was admitted due to syncope. Cardiology department evaluated this patient and they suggested that probably this is related to dehydration and orthostatic hypotension, but anyway, they will arrange a cardiac event device to monitor his heart rate as an outpatient. For his left ankle sprain, we will put a boot and we are going to give him crutches so he can go home. I recommended him to follow with 1 of our Orthopedic surgeons, Dr. Lorenzo, he will need to call for an appointment. It has been noticed that his left lower extremity is red and warm, and at the beginning it was believed that was related to cellulitis and he was placed on clindamycin, which I will continue at home as well. OBJECTIVE: Vital Signs: Temperature 97.8 degrees, pulse 104, respiratory rate 18, blood pressure 139/66, oxygen saturation 98% on room air. HEENT: Head normocephalic, atraumatic. PERRLA. Neck: Supple. No JVD. No masses. Central trachea. Chest: Clear to auscultation. No wheezing. No rales. Cardiovascular: Regular rate and rhythm. Abdomen: Soft, protuberant, nontender, nondistended. No hepatosplenomegaly. Extremities: Left ankle swelling, redness, and it is painful to palpation. The right lower extremity has no edema, no clubbing, no cyanosis. Neurological: The patient is alert and oriented x3. No focal deficits. LABORATORY: Laboratory from yesterday: WBC 8, hemoglobin 14.2, hematocrit 42.1, platelets 299,000. Sodium 139, potassium 4, chloride 103, bicarbonate 24, BUN 19, creatinine 1.2. Glucose 162, calcium 9.2, TSH 6.1, but free T4 is 1.2. DISCHARGE MEDICATIONS: Eliquis 5 mg p.o. b.i.d., clindamycin 300 mg p.o. q.8 hours to complete 7 days, digoxin 250 mcg p.o. daily, diltiazem 60 mg p.o. t.i.d., Flonase 2 sprays nasally daily, furosemide 40 mg p.o. b.i.d., Glipizide 10 mg p.o. b.i.d., Weston 7.5 one tablet p.o. q.6 hours as needed, Toprol-XL 50 mg p.o. b.i.d., spironolactone 25 mg p.o. b.i.d. FOLLOWUP: Follow up with his primary care doctor, Cardiology Department, and Orthopedic Surgery Department. He will need to call for an appointment. He will receive a cardiac event device from Cardiology Department to evaluate his heart rhythm. TIME SPENT: Discharging this patient 35 minutes. cc: Javi Post MD
== END 2018-09-05 18:30 | disposition home or self-care (01) ==
LOC: SUPCPDRO → ED 11:46 → SUATTDRO 21:30 → INTOOBSV 21:30 → EDIPHOLD 21:30 → 3N 22:39
PROVIDERS: ATTEND Internal Medicine
CPT/HCPCS: 70450; 71010; 71045; 73610; 73630; 80053; 80101; 80301; 80307; 80324; 80345; 80346; 80353; 80358; 80361; 80365; 81001; 82550; 82805; 82948; 83036; 83735; 83880; 83992; 84439; 84443; 84484; 85025; 85379; 85610; 93005; 93010; 93306; 93880; 97162; 97530; A9270; C8929; G0431; G0434; G0479; G0480; Q9957; S0077; XXXXX